=== PATIENT | male | born 1995 | race African-American/Black ===

== ENCOUNTER 2020-07-05 15:17 | Inpatient (IN) | payer OTHER ==
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
--- NOTE | 2020-07-05 17:01 | HP ---
CIWA Score Nausea/Vomitin Muscle Tremors: 1-None Visible, but [place] Anxiety: 3 Agitation: 3 Paroxysmal Sweats: 1-Minimal Palms Moist Orientation: 1-Uncertain about Date Tacttile Disturbances: 0-None Auditory Disturbances: 0-None Visual Disturbances: 0-None Headache: 0-None Present CIWA-Ar Total Score: 12 - Admission Criteria OASAS Guidelines: Admission for Medically Managed Detox: Requires at least one of the followin. CIWA greater than 12 2. Seizures within the past 24 hours 3. Delirium tremens within the past 24 hours 4. Hallucinations within the past 24 hours 5. Acute intervention needed for co occurring medical disorder 6. Acute intervention needed for co occurring psychiatric disorder 7. Severe withdrawal that cannot be handled at a lower level of care (continued vomiting, continued diarrhea, abnormal vital signs) requiring intravenous medication and/or fluids 8. Admission ROS S - HPI Chief Complaint: Patient states here for alcohol and cocaine detox. I then need to go terminal gauger to stop. History of Present Illness: 24 yo presents w/ alcohol withdrawal symptoms seeking detox. VALENTIN: 0.0 UTox: + THC/NICKOLAS/MOP Denies seizures, blackouts, or overdoses. Alcohol use began at age 17, but was not using daily. Started drinking more over past 2 weeks till now drinking 1-2 gallons of whiskey - averaging 1 pint daily. for last week or so. Cocaine use since age 24. Currently using 1 bag/week. Last used yesterday. marijuana use since age 14. Currently smokes 6-8 blunts/day. Last used this a.m. PMHx: MHHx: SHx:
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
[2020-07-05] MEDS ORDERED: NICOTINE POLACRILEX 2 MG GUM BUC PRN (17:42)
[2020-07-05] MEDS ORDERED: guaiFENesin 200 MG/10 ML 10 ML UNIT-DOSE CUPS PO PRN (17:42)
[2020-07-05] MEDS ORDERED: MAGNESIUM HYDROX 2400MG/30ML ORAL SUSPENSION 30 ML CUP PO PRN (17:42)
[2020-07-05] MEDS ORDERED: MAG HYDROX/AL HYDROX/SIMETH 30 ML UNIT-DOSE CUP PO PRN (17:42)
[2020-07-05] MEDS ORDERED: P-EPHED 60MG/TRIPROLIDI 2.5MG TABLET PO PRN (17:42)
[2020-07-05] MEDS ORDERED: ONDANSETRON *ODT* 4 MG TABLET SL PRN (17:42)
[2020-07-05] MEDS ORDERED: NICOTINE 14 MG/24 HOURS TOPICAL PATCH TD PRN (17:42)
[2020-07-05] MEDS ORDERED: ACETAMINOPHEN 325 MG TABLET (FP) PO PRN ×2 (17:42)
[2020-07-05] MEDS ORDERED: IBUPROFEN 400 MG TABLET (FP) PO PRN (17:42)
[2020-07-05] MEDS ORDERED: MAGNESIUM CITRATE 300 ML BOTTLE PO PRN (17:42)
[2020-07-05] MEDS ORDERED: BISMUTH SUBSALICYLATE 524 MG/30 ML UD PO PRN (17:42)
[2020-07-05] MEDS ORDERED: MENTHOL/PHENOL 1 EACH UD MM PRN (17:42)
[2020-07-05] MEDS ORDERED: diazePAM 5 MG TABLET PO PRN (17:50)
[2020-07-05 17:55] VITALS: BMI 27.9
[2020-07-05] MEDS: diazePAM 5 MG TABLET PO SCH ×2 (20:27→23:11)
[2020-07-05] MEDS: BACITRACIN 0.9 GM PACKET TP SCH (23:10)
[2020-07-05] MEDS: THIAMINE HCL 100 MG TABLET (FP) PO SCH (23:11)
[2020-07-05] MEDS: MELATONIN 5 MG TABLETS PO SCH (23:11)
[2020-07-06] MEDS: diazePAM 5 MG TABLET PO SCH ×4 (06:12→22:13)
--- NOTE | 2020-07-06 09:27 | PN ---
S CIWA - CIWA Score Nausea/Vomitin-Mild Nausea/No Vomiting Muscle Tremors: 2 Anxiety: 4-Mod. Anxious/Guarded Agitation: 0-Normal Activity Paroxysmal Sweats: No Perspiration Orientation: 0-Oriented Tacttile Disturbances: 0-None Auditory Disturbances: 0-None Visual Disturbances: 2-Mild Sensitivity Headache: 2-Mild CIWA-Ar Total Score: 11 BHS Progress Note (SOAP) Subjective: 24 years old male was admitted on 07/05/20 for alcohol withdrawal sx management treating with valium detox regiment mr altamirano prefers to talk about custodial alcohol rehab as aftercare plan met with counselor to initiate superintendent terminal rehab upon detox discharge Objective: 07/06/20 09:24 Vital Signs - 24 hr 07/05/20 07/05/20 07/05/20 17:52 18:55 20:02 Temperature 97 F L 97.3 F L 97.9 F Pulse Rate 78 79 78 Respiratory 18 18 18 Rate Blood Pressure 103/74 128/91 103/74 O2 Sat by Pulse 98 Oximetry (%) 07/05/20 07/06/20 20:36 06:36 Temperature 97.7 F 96.9 F L Pulse Rate 60 85 Respiratory 18 18 Rate Blood Pressure 119/85 120/86 O2 Sat by Pulse 95 99 Oximetry (%) 07/06/20 09:24 lab pending Assessment: 07/06/20 09:24 alcohol withdrawal Plan: valium regiment custodial aftercare arrange in process
[2020-07-06] MEDS: PRENATAL VITAMINS W/ FOLIC ACID TABLET (FP) PO SCH (10:14)
[2020-07-06] MEDS: BACITRACIN 0.9 GM PACKET TP SCH ×2 (10:14→22:13)
[2020-07-06 10:25] LABS: HEMATOCRIT 43.6 % (35.4-49); HEMOGLOBIN 14.5 GM/dL (11.7-16.9); MCHC 33.3 g/dl (32.0-35.9); MEAN PLT VOLUME 7.7 fl (7.5-11.1); PLATELET COUNT 345 K/MM3 (134-434); RBC 4.84 M/mm3 (4.00-5.60); WHITE BLOOD COUNT 6.9 K/mm3 (4.0-10.0)
[2020-07-06 10:26] LABS: ALBUMIN 3.6 g/dl (3.4-5.0); BLOOD UREA NITROGEN 10.5 mg/dL (7-18); CALCIUM 9.2 mg/dL (8.5-10.1); CREATININE 0.9 mg/dL (0.55-1.3); POTASSIUM 3.9 mmol/L (3.5-5.1)
[2020-07-06 10:32] LABS: BILIRUBIN,TOTAL 0.4 mg/dL (0.2-1)
[2020-07-06] MEDS: THIAMINE HCL 100 MG TABLET (FP) PO SCH (22:13)
[2020-07-06] MEDS: MELATONIN 5 MG TABLETS PO SCH (22:14)
[2020-07-07] MEDS: diazePAM 5 MG TABLET PO SCH ×3 (06:39→21:30)
[2020-07-07] MEDS: PRENATAL VITAMINS W/ FOLIC ACID TABLET (FP) PO SCH (10:37)
[2020-07-07] MEDS: BACITRACIN 0.9 GM PACKET TP SCH ×2 (10:37→21:30)
--- NOTE | 2020-07-07 15:04 | PN ---
S CIWA - CIWA Score Nausea/Vomitin-Mild Nausea/No Vomiting Muscle Tremors: 1-None Visible, but [place] Anxiety: 1-Mildly Anxious Agitation: 0-Normal Activity Paroxysmal Sweats: No Perspiration Orientation: 0-Oriented Tacttile Disturbances: 0-None Auditory Disturbances: 0-None Visual Disturbances: 1-Very Mild Sensitivity Headache: 2-Mild CIWA-Ar Total Score: 6 BHS Progress Note (SOAP) Subjective: 24 years old male was admitted on 07/05/20 for alcohol withdrawal sx management treating with valium detox regiment feels ok today less anxious discussing aftercare with staff mr altamirano prefers to go to [facility] for alcohol abuse recovery Objective: 07/07/20 15:09 Vital Signs - 24 hr 07/06/20 07/06/20 07/07/20 16:43 20:21 06:24 Temperature 97.3 F L 96.4 F L 97.3 F L Pulse Rate 81 61 72 Respiratory 20 18 18 Rate Blood Pressure 143/101 H 126/96 129/93 O2 Sat by Pulse 99 96 Oximetry (%) 07/07/20 07/07/20 08:47 12:36 Temperature 97.3 F L 97.3 F L Pulse Rate 77 64 Respiratory 20 20 Rate Blood Pressure 129/92 131/89 O2 Sat by Pulse 100 Oximetry (%) Laboratory Tests 07/05/20 07/06/20 07/06/20 18:00 08:00 08:00 WBC 6.9 RBC 4.84 Hgb 14.5 Hct 43.6 MCV 90.0 MCH 30.0 MCHC 33.3 RDW 13.0 Plt Count 345 MPV 7.7 Sodium 141 Potassium 3.9 Chloride 108 H Carbon Dioxide 27 Anion Gap 7 L BUN 10.5 Creatinine 0.9 Est GFR (CKD-EPI)AfAm 137.10 Est GFR (CKD-EPI)NonAf 118.29 Random Glucose 80 Calcium 9.2 Total Bilirubin 0.4 AST 15 ALT 20 Alkaline Phosphatase 86 Total Protein 7.0 Albumin 3.6 Syphilis Serology COVID-19 (ARA) Not detected HIV Ag/Ab Combo Qual 07/06/20 07/06/20 08:00 08:00 WBC RBC Hgb Hct MCV MCH MCHC RDW Plt Count MPV Sodium Potassium Chloride Carbon Dioxide Anion Gap BUN Creatinine Est GFR (CKD-EPI)AfAm Est GFR (CKD-EPI)NonAf Random Glucose Calcium Total Bilirubin AST ALT Alkaline Phosphatase Total Protein Albumin Syphilis Serology Non-reactive COVID-19 (ARA) HIV Ag/Ab Combo Qual Negative lab noted Assessment: 07/07/20 15:09 alcohol withdrawal Plan: valium regiment
[2020-07-07 18:23] LABS: PH,URINE 6.5 (5.0-8.0); URINE APPEARANCE CLEAR; URINE BILIRUBIN NEGATIVE (NEGATIVE); URINE COLOR YELLOW; URINE GLUCOSE (UA) NEGATIVE (NEGATIVE); URINE KETONE NEGATIVE (NEGATIVE); URINE LEUK ESTERASE NEGATIVE (NEGATIVE); URINE NITRITE NEGATIVE (NEGATIVE); URINE PROTEIN NEGATIVE (NEGATIVE); URINE UROBILINOGEN 0.2 mg/dL (0.2-1.0)
[2020-07-07] MEDS: THIAMINE HCL 100 MG TABLET (FP) PO SCH (21:29)
[2020-07-07] MEDS: MELATONIN 5 MG TABLETS PO SCH (21:29)
[2020-07-08] MEDS: diazePAM 5 MG TABLET PO SCH ×3 (06:11→18:42)
[2020-07-08] MEDS: BACITRACIN 0.9 GM PACKET TP SCH ×2 (10:07→22:57)
[2020-07-08] MEDS: PRENATAL VITAMINS W/ FOLIC ACID TABLET (FP) PO SCH (10:07)
--- NOTE | 2020-07-08 10:48 | PN ---
[facility] CIWA - CIWA Score Nausea/Vomitin-No Nausea/No Vomiting Muscle Tremors: 2 Anxiety: 2 Agitation: 2 Paroxysmal Sweats: No Perspiration Orientation: 0-Oriented Tacttile Disturbances: 0-None Auditory Disturbances: 0-None Visual Disturbances: 0-None Headache: 1-Very Mild CIWA-Ar Total Score: 7 S Progress Note (SOAP) Subjective: alert,irritable,anxious,interrupted sleep,aching pain Objective: 07/08/20 16:37 Vital Signs Temperature 97.2 F L 07/08/20 12:33 Pulse Rate 75 07/08/20 12:33 Respiratory Rate 18 07/08/20 12:33 Blood Pressure 128/86 07/08/20 12:33 O2 Sat by Pulse Oximetry (%) 97 07/08/20 12:33 Laboratory Last Values WBC 6.9 K/mm3 (4.0-10.0) 07/06/20 08:00 RBC 4.84 M/mm3 (4.00-5.60) 07/06/20 08:00 Hgb 14.5 GM/dL (11.7-16.9) 07/06/20 08:00 Hct 43.6 % (35.4-49) 07/06/20 08:00 MCV 90.0 fl (80-96) 07/06/20 08:00 MCH 30.0 pg (25.7-33.7) 07/06/20 08:00 MCHC 33.3 g/dl (32.0-35.9) 07/06/20 08:00 RDW 13.0 % (11.9-15.9) 07/06/20 08:00 Plt Count 345 K/MM3 (134-434) 07/06/20 08:00 MPV 7.7 fl (7.5-11.1) 07/06/20 08:00 Sodium 141 mmol/L (136-145) 07/06/20 08:00 Potassium 3.9 mmol/L (3.5-5.1) 07/06/20 08:00 Chloride 108 mmol/L (98-107) H 07/06/20 08:00 Carbon Dioxide 27 mmol/L (21-32) 07/06/20 08:00 Anion Gap 7 MMOL/L (8-16) L 07/06/20 08:00 BUN 10.5 mg/dL (7-18) 07/06/20 08:00 Creatinine 0.9 mg/dL (0.55-1.3) 07/06/20 08:00 Est GFR (CKD-EPI)AfAm 137.10 07/06/20 08:00 Est GFR (CKD-EPI)NonAf 118.29 07/06/20 08:00 Random Glucose 80 mg/dL (74-106) 07/06/20 08:00 Calcium 9.2 mg/dL (8.5-10.1) 07/06/20 08:00 Total Bilirubin 0.4 mg/dL (0.2-1) 07/06/20 08:00 AST 15 U/L (15-37) 07/06/20 08:00 ALT 20 U/L (13-61) 07/06/20 08:00 Alkaline Phosphatase 86 U/L (45-117) 07/06/20 08:00 Total Protein 7.0 g/dl (6.4-8.2) 07/06/20 08:00 Albumin 3.6 g/dl (3.4-5.0) 07/06/20 08:00 Urine Color Yellow 07/07/20 13:00 Urine Appearance Clear 07/07/20 13:00 Urine pH 6.5 (5.0-8.0) 07/07/20 13:00 Ur Specific [place] 1.023 (1.010-1.035) 07/07/20 13:00 Urine Protein Negative (NEGATIVE) 07/07/20 13:00 Urine Glucose (UA) Negative (NEGATIVE) 07/07/20 13:00 Urine Ketones Negative (NEGATIVE) 07/07/20 13:00 Urine Blood Negative (NEGATIVE) 07/07/20 13:00 Urine Nitrite Negative (NEGATIVE) 07/07/20 13:00 Urine Bilirubin Negative (NEGATIVE) 07/07/20 13:00 Urine Urobilinogen 0.2 mg/dL (0.2-1.0) 07/07/20 13:00 Ur Leukocyte Esterase Negative (NEGATIVE) 07/07/20 13:00 Syphilis Serology Non-reactive (NONREACTIVE) 07/06/20 08:00 COVID-19 (ARA) Not detected (Not Detected) 07/05/20 18:00 HIV Ag/Ab Combo Qual Negative (NEGATIVE) 07/06/20 08:00 Assessment: 07/08/20 16:38 withdrawal symptom Plan: continue detox valium regimen,discharge in am
[2020-07-08] MEDS: MELATONIN 5 MG TABLETS PO SCH (22:57)
[2020-07-08] MEDS: THIAMINE HCL 100 MG TABLET (FP) PO SCH (22:57)
[2020-07-09] MEDS ORDERED: diazePAM 5 MG TABLET PO ONE (06:00)
--- NOTE | 2020-07-09 08:56 | DS ---
[facility] Detox Discharge Summary Admission Date: 07/05/20 Discharge Date: 07/09/20 - History Present History: Alcohol Dependence, Cannabis Dependence, Cocaine Dependence Additional Comments: alert,oriented x 3 ambulation on the unit lung clear on auscultation bilaterally abdomen soft,no pain,no tenderness no edema of legs detox completed,no withdrawal symptom stable for discharge follow up with after care program as arrangement,rehab at [facility] total time spending o n discharge 35 minutes - Physical Exam Results Vital Signs: Vital Signs Temperature 97.9 F 07/09/20 06:30 Pulse Rate 90 07/09/20 06:30 Respiratory Rate 18 07/09/20 06:30 Blood Pressure 112/72 07/09/20 06:30 O2 Sat by Pulse Oximetry (%) 98 07/09/20 06:30 Pertinent Admission Physical Exam Findings: withdrawal signs and symptom Laboratory Last Values WBC 6.9 K/mm3 (4.0-10.0) 07/06/20 08:00 RBC 4.84 M/mm3 (4.00-5.60) 07/06/20 08:00 Hgb 14.5 GM/dL (11.7-16.9) 07/06/20 08:00 Hct 43.6 % (35.4-49) 07/06/20 08:00 MCV 90.0 fl (80-96) 07/06/20 08:00 MCH 30.0 pg (25.7-33.7) 07/06/20 08:00 MCHC 33.3 g/dl (32.0-35.9) 07/06/20 08:00 RDW 13.0 % (11.9-15.9) 07/06/20 08:00 Plt Count 345 K/MM3 (134-434) 07/06/20 08:00 MPV 7.7 fl (7.5-11.1) 07/06/20 08:00 Sodium 141 mmol/L (136-145) 07/06/20 08:00 Potassium 3.9 mmol/L (3.5-5.1) 07/06/20 08:00 Chloride 108 mmol/L (98-107) H 07/06/20 08:00 Carbon Dioxide 27 mmol/L (21-32) 07/06/20 08:00 Anion Gap 7 MMOL/L (8-16) L 07/06/20 08:00 BUN 10.5 mg/dL (7-18) 07/06/20 08:00 Creatinine 0.9 mg/dL (0.55-1.3) 07/06/20 08:00 Est GFR (CKD-EPI)AfAm 137.10 07/06/20 08:00 Est GFR (CKD-EPI)NonAf 118.29 07/06/20 08:00 Random Glucose 80 mg/dL (74-106) 07/06/20 08:00 Calcium 9.2 mg/dL (8.5-10.1) 07/06/20 08:00 Total Bilirubin 0.4 mg/dL (0.2-1) 07/06/20 08:00 AST 15 U/L (15-37) 07/06/20 08:00 ALT 20 U/L (13-61) 07/06/20 08:00 Alkaline Phosphatase 86 U/L (45-117) 07/06/20 08:00 Total Protein 7.0 g/dl (6.4-8.2) 07/06/20 08:00 Albumin 3.6 g/dl (3.4-5.0) 07/06/20 08:00 Urine Color Yellow 07/07/20 13:00 Urine Appearance Clear 07/07/20 13:00 Urine pH 6.5 (5.0-8.0) 07/07/20 13:00 Ur Specific [place] 1.023 (1.010-1.035) 07/07/20 13:00 Urine Protein Negative (NEGATIVE) 07/07/20 13:00 Urine Glucose (UA) Negative (NEGATIVE) 07/07/20 13:00 Urine Ketones Negative (NEGATIVE) 07/07/20 13:00 Urine Blood Negative (NEGATIVE) 07/07/20 13:00 Urine Nitrite Negative (NEGATIVE) 07/07/20 13:00 Urine Bilirubin Negative (NEGATIVE) 07/07/20 13:00 Urine Urobilinogen 0.2 mg/dL (0.2-1.0) 07/07/20 13:00 Ur Leukocyte Esterase Negative (NEGATIVE) 07/07/20 13:00 Syphilis Serology Non-reactive (NONREACTIVE) 07/06/20 08:00 COVID-19 (ARA) Not detected (Not Detected) 07/05/20 18:00 HIV Ag/Ab Combo Qual Negative (NEGATIVE) 07/06/20 08:00 Vital Signs Temperature 96.9 F L 07/09/20 08:39 Pulse Rate 79 07/09/20 08:39 Respiratory Rate 18 07/09/20 08:39 Blood Pressure 132/87 07/09/20 08:39 O2 Sat by Pulse Oximetry (%) 98 07/09/20 06:30 - Treatment Hospital Course: Detox Protocol Followed, Detoxed Safely, Responded well, Dis charged Condition Good, Rehab Referral Accepted Patient has Accepted a [facility] - Medication Discharge Medications: Ambulatory Orders NK [No Known Home Medication] 07/05/20 - Diagnosis (1) Alcohol dependence with withdrawal, uncomplicated Status: Acute (2) Cannabis dependence, uncomplicated Status: Chronic (3) Cocaine dependence, uncomplicated Status: Chronic (4) Nicotine dependence Status: Chronic Qualifiers: Nicotine product type: cigarettes Substance use status: uncomplicated Qualified Code(s): F17.210 - Nicotine dependence, cigarettes, uncomplicated - AMA Did Patient Leave Against Medical Advice: No
--- NOTE | 2020-07-09 08:56 | PN ---
[facility] CIWA - CIWA Score Nausea/Vomitin-No Nausea/No Vomiting Muscle Tremors: None Anxiety: 1-Mildly Anxious Agitation: 0-Normal Activity Paroxysmal Sweats: No Perspiration Orientation: 0-Oriented Tacttile Disturbances: 0-None Auditory Disturbances: 0-None Visual Disturbances: 0-None Headache: 0-None Present CIWA-Ar Total Score: 1 S Progress Note (SOAP) Subjective: alert,no complaint Objective: 07/09/20 15:29 Vital Signs Temperature 96.9 F L 07/09/20 08:39 Pulse Rate 79 07/09/20 08:39 Respiratory Rate 18 07/09/20 08:39 Blood Pressure 132/87 07/09/20 08:39 O2 Sat by Pulse Oximetry (%) 98 07/09/20 06:30 Assessment: 07/09/20 15:30 detox completed,no withdrawal symptom Plan: stable for discharge today,follow up with after care program as arrangement
[2020-07-09 09:48] VITALS: BP 132/87; PULSE 79; TEMP 96.9
== END 2020-07-09 09:18 | disposition home or self-care (01) | DRG 774 ==
LOC: YASAS 15:17 → Y3N 17:43
PROVIDERS: ADMIT Allergy & Immunology; ATTEND Allergy & Immunology
PROC: HZ2ZZZZ Detoxification Services for Substance Abuse Treatment (ICD-10-PCS; principal; 2020-07-05)
DX: F10.230 Alcohol dependence with withdrawal, uncomplicated (principal); F14.20 Cocaine dependence, uncomplicated; F12.20 Cannabis dependence, uncomplicated; F17.210 Nicotine dependence, cigarettes, uncomplicated; J35.1 Hypertrophy of tonsils; J34.89 Other specified disorders of nose and nasal sinuses; S90.511A Abrasion, right ankle, initial encounter; Y93.55 Activity, bike riding; Y92.89 Other specified places as the place of occurrence of the external cause; Y99.8 Other external cause status; Z56.0 Unemployment, unspecified; Z59.0 Homelessness; Z91.013 Allergy to seafood; Z91.018 Allergy to other foods
CPT/HCPCS: 36415; 80053; 81003; 85027; 86780; 87389; U0003